=== PATIENT | female | born 1955 | race Caucasian/White ===

== ENCOUNTER → 2019-01-30 | Outpatient (CLI) | payer OTHER ==
--- NOTE | 2019-01-30 11:16 | Diagnostic Imaging Report ---
EXAMINATION: Left knee. INDICATION: Knee pain. Three views were obtained. There are no prior studies available for comparison. FINDINGS: There is no fracture, dislocation, or acute bony abnormality evident. There is mild narrowing of both the medial compartment and the patellofemoral space. The lateral compartment is fairly well maintained. The lateral view does suggest that there is a small joint effusion present. The soft tissues are otherwise unremarkable. IMPRESSION: 1. There is no evidence for an acute bony abnormality. 2. There does appear to be a small joint effusion present. If there is clinical concern regarding internal derangement, then MRI would be recommended for further study. Dictated by: Dictated on workstation # [id number]
== END ==
LOC: RAD 10:46
PROVIDERS: ATTEND Family Medicine
DX: M23.8X2 Other internal derangements of left knee (principal); M25.562 Pain in left knee
CPT/HCPCS: 73562